=== PATIENT | female | born 1965 | race Caucasian/White ===

== ENCOUNTER → 2021-03-10 10:07 | Outpatient (CLI) | payer OTHER, SELFPAY ==
[2021-03-10 11:04] LABS: Add Manual Diff / Slide Review NO; Basophils Absolute Auto 100 /uL (0-100); Basophils Percent Auto 0.7 % (0-2); Eosinophils Absolute Auto 100 /uL (0-450); Eosinophils Percent Auto 1.2 % (2-4); Hematocrit 41.8 % (36-46); Lymphocytes Absolute Auto 2300 /uL (1100-4500); Lymphocytes Percent Auto 30.3 % (25-40); Mean Corpuscular HGB Conc 33.5 % (30-36); Mean Corpuscular Hemoglobin 30.1 PG (26-34); Monocytes Absolute Auto 400 /uL (0-900); Monocytes Percent Auto 5.2 % (3-14); Neutrophils Absolute Auto 4700 /uL (1500-7000); Neutrophils Percent Auto 62.6 % (50-75); Platelet Count 293 X10^3/uL (150-400); Red Blood Cell Count 4.64 X10^6/uL (4.0-5.2); Red Cell Distribution Width 13.6 % (11.6-14.8); White Blood Cell Count 7.6 X10^3/uL (4.5-11.0)
[2021-03-10 11:17] LABS: Glucose 90 mg/dL (70-100); Potassium 4.5 mmol/L (3.4-5.1); Sodium 140 mmol/L (137-145)
== END ==
PROVIDERS: PCP Family Medicine; Referring Provider Surgery; Visit Provider Surgery
DX: K80.20 Calculus of gallbladder without cholecystitis without obstruction (principal)
CPT/HCPCS: 36415; 80053; 83690; 85025; 99213

== ENCOUNTER → 2021-03-20 09:44 | Outpatient (CLI) | payer OTHER, SELFPAY ==
[2021-03-20 11:02] LABS: COVID19 -Nasal RAPID Negative (Negative)
== END ==
PROVIDERS: PCP Family Medicine; Visit Provider Surgery
DX: Z01.812 Encounter for preprocedural laboratory examination (principal); Z20.822 Contact with and (suspected) exposure to COVID-19
CPT/HCPCS: 87635; C9803

== ENCOUNTER 2021-03-23 09:07 | Day surgery (SDC) | payer OTHER, SELFPAY ==
[2021-03-19 10:52] VITALS: BMI 33.1
[2021-03-23] VITALS (18 sets, daily range): BP systolic 110–122; BP diastolic 65–83; PULSE 56–82; RESP 12–18; TEMP 36.1–36.5; O2SAT 95–100; BMI 32.6
--- NOTE | 2021-03-23 | PATH_ITS ---
[facility] Accession Number: [id number] . 01 Material submitted: . gallbladder - GALLBLADDER . 01 Clinical history: . LAP COLT W/IOC . 02 Diagnosis: Gallbladder, Cholecystectomy: Chronic cholecystitis, cholesterolosis, and cholelithiasis. MRV 03/25/2021 1032 Local . 02 Electronically signed: . Lindsey Nicholas MD, Pathologist NPI- [id number] . 01 Gross description: . The specimen is received in formalin labeled gallbladder and consists of a 7.1 x 3.5 x 2.5 cm gallbladder with a 0.3 cm in diameter cystic duct. The serosa is pink-purple and smooth. Opening reveals green viscous bile with two bartholomew-green bosselated choleliths measuring 1.0 x 1.0 x 0.8 cm and 1.5 x 1.0 x 0.8 cm. The mucosa is green and velvety and the wall thickness measures 0.1 cm. Clinical Associate sections are submitted, to include the en face cystic duct margin (blue) in cassette A1. ([id number]) /[facility] 03/24/2021 1547 Local . 02 Pathologist provided ICD-10: K80.20, K80.60 . 02 CPT . 374378 Performed at: 01 [facility] [address], [place], [place] [id number] MD Javier Fuentes MD Phone: [phone] Performed at: [address] [facility] [address] [place], [place] [id number] MD Mary Caldwell MD Phone: [phone]
--- NOTE | 2021-03-23 09:00 | DI.RAD.S_ITS ---
PROCEDURE: XR CHOLANGIOGRAM OPERATIVE INDICATIONS: OPERATIVE CHOLANGIOGRAM COMPARISON: None. FINDINGS: Biliary ducts: The surgeon injected contrast into the biliary ducts after cannulation of the cystic duct stump. Visualized intra- and extrahepatic bile ducts are normal in caliber, without strictures. No intraluminal filling defects to suggest retained ductal stones or sludge. No evidence for iatrogenic ductal injury. Duodenum: Contrast flows promptly through the sphincter of Oddi into the duodenum, which appears normal in caliber. IMPRESSION: Expected appearance of the intraoperative cholangiogram. Dictated by: Kam Paul M.D. on 03/23/2021 at 12:46 Approved by: Kam Paul M.D. on 03/23/2021 at 12:47
[2021-03-23] MEDS: ACETAMINOPHEN 325 MG TABLET 975 MG PO (09:36)
--- NOTE | 2021-03-23 09:55 | PM.PREOP ---
Pre-operative Note COVID-19 COVID-19 status: Negative Result date/Date tested (Pos, Neg/Pending): 03/20/21 Interval Note History & Physical reviewed/Exam performed by Physician: Yes Changes to H&P: No ASA Class (for procedural sedation): II
[2021-03-23] MEDS: LACTATED RINGERS 1,000 ML 42 ML IV ×2 (09:57→11:35)
[2021-03-23] MEDS: CEFAZOLIN 2 GM/20 ML SYRINGE IV (10:25)
--- NOTE | 2021-03-23 10:48 | SUR.OPER ---
Supine on padded OR bed, head on pillow, safety belt at thigh, left arm padded and tucked at side. Right arm secured on padded arm board <90 degrees abduction. Legs uncrossed. Padded footboard in place. Tape over blanket to secure lower legs.
[2021-03-23] MEDS: BUPIVACAINE 0.5% (PF) VIAL 30 ML INJ (10:56)
[2021-03-23] MEDS: LIDOCAINE 1% W/EPI 20 ML INJ (10:58)
[2021-03-23] MEDS: IOPAMIDOL 15 ML VIAL INJ (10:59)
[2021-03-23] MEDS: SODIUM CHLORIDE 0.9% FLUSH 15 ML IV (11:00)
--- NOTE | 2021-03-23 11:55 | PM.OP.1 ---
Operative Date/Time/Diagnoses Date of procedure: 03/23/21 Time of procedure: 11:55 Pre-op diagnosis: Symptomatic cholelithiasis Post-op diagnosis: same Procedure & Clinicians Procedure: Laparoscopic cholecystectomy with intraoperative cholangiogram Same procedure as scheduled: Yes Indications: Gallstones Surgeon: Lexa Casey Click Yes if Unassisted: Yes Anesthesia Type: General Operative Notes Estimated Blood Loss (mL): 15 Procedure in detail: The patient was given preoperative antibiotic. The patient was brought to the operating room, placed on the table in the supine position. General endotracheal anesthesia was induced. The abdomen was prepped and draped. A time-out was performed. We made a 1 cm infraumbilical incision. We dissected down to the base of the umbilical stalk using cautery. We grasped the umbilical stalk with a Rajesh clamp to elevate the abdominal wall. We scored the fascia in the midline with cautery 1 cm. We pierced the peritoneum with a Peon clamp. The Giovanna port was placed and the abdomen was insufflated to 15 mmHg. A 10 mm 30 degree laparoscopic was inserted. There was no evidence of any injury from the entry. Next, we placed 5 mm ports in the subxiphoid position and right upper quadrant at the midclavicular line and anterior axillary line. Patient was then positioned in reverse Trendelenburg and the table was tilted to the left. The gallbladder was grasped at the dome and retracted cephalad. We then dissected the cystic structures with a combination of hook cautery and blunt dissection. We obtained a critical view. Next, a cholangiogram was performed using the 6 Chinese ureteral catheter. There was good flow of contrast into the duodenum and to the hepatic bifurcation with no obvious filling defects. The cystic duct common duct junction was well visualized. We then placed clips on the cystic duct and artery and divided the cystic duct and artery sharply between the clips. The gallbladder was then dissected off the liver and placed in a specimen retrieval bag. We irrigated the right upper quadrant and all the aspirate returned clear. We then removed the 5 mm ports under direct vision we removed the Giovanna port. We then injected some local into the fascia and closed the fascia with 2 interrupted 0 Vicryl sutures. The skin incisions were closed with 4 Monocryl and Steri-Strips were applied. Band-Aids were applied over the Steri-Strips. EBL: 15 mL Specimen: Gallbladder Post-operative Condition: stable Disposition: PACU
[2021-03-23] MEDS: fentaNYL 100 MCG/2 ML INJ IV (12:24)
[2021-03-23] MEDS: OXYCODONE/ACETAMINOPHEN 5/325 TABLET 1 TAB PO ×2 (13:12→13:45)
== END 2021-03-23 14:36 | disposition home or self-care (01) ==
PROVIDERS: PCP Family Medicine; Referring Provider Surgery; Visit Provider Surgery
PROC: 0FT44ZZ Resection of Gallbladder, Percutaneous Endoscopic Approach (ICD-10-PCS; CPT 47562; principal; 2021-03-23 10:45)
DX: K80.10 Calculus of gallbladder with chronic cholecystitis without obstruction (principal); G47.33 Obstructive sleep apnea (adult) (pediatric); K21.9 Gastro-esophageal reflux disease without esophagitis; J45.909 Unspecified asthma, uncomplicated
CPT/HCPCS: 47563; 74300; J0330; J0690; J1100; J2405; J2704; J3010

== ENCOUNTER → 2021-05-05 10:35 | Outpatient (CLI) | payer OTHER, SELFPAY ==
[2021-05-05 15:39] LABS: C-Reactive Protein Quant < 0.5 mg/dL (<1.0)
[2021-05-05 17:55] LABS: Erythrocyte Sedimentation Rate 4 MM/HR (0-20)
[2021-05-06 21:07] LABS: Tissue Transglutaminase IgA <2 U/mL (0-3); Tissue Transglutaminase IgG <2 U/mL (0-5)
== END ==
PROVIDERS: PCP Family Medicine; Referring Provider Internal Medicine Gastroenterology; Visit Provider Internal Medicine Gastroenterology
DX: R10.9 Unspecified abdominal pain (principal); K62.5 Hemorrhage of anus and rectum; R19.8 Other specified symptoms and signs involving the digestive system and abdomen
CPT/HCPCS: 36415; 83516; 85651; 86140

== ENCOUNTER → 2021-06-26 13:50 | Outpatient (CLI) | payer OTHER, SELFPAY ==
[2021-06-26 16:15] LABS: COVID19 -Nasal RAPID Negative (Negative)
== END ==
PROVIDERS: PCP Family Medicine; Visit Provider Family Medicine Sleep Medicine
DX: Z20.822 Contact with and (suspected) exposure to COVID-19 (principal)
CPT/HCPCS: 87635; C9803

== ENCOUNTER 2021-06-29 12:42 | Day surgery (SDC) | payer OTHER, SELFPAY ==
[2021-06-29] VITALS (8 sets, daily range): BP systolic 109–131; BP diastolic 66–79; PULSE 62–69; RESP 13–20; TEMP 36.2–36.6; O2SAT 94–99; BMI 33.5
--- NOTE | 2021-06-29 | PATH_ITS ---
[facility] Accession Number: [id number] . 01 Material submitted: . PART A: duodenum - DUODENAL PART B: stomach - ANTRUM PART C: gastrointestinal site - GASTRIC POLYPS PART D: esophagus, E-G Junction - GE JUNCTION PART E: colon - RANDOM COLON BIOPSY . 02 Diagnosis: A. Duodenal, Biopsy: Small bowel mucosa with no diagnostic abnormality. Negative for active inflammation, dysplasia, and malignancy. . B. Antrum, Biopsy: Portions of gastric antral mucosa with mild chronic inflammation. Negative for Helicobacter organisms by immunohistochemistry. Negative for intestinal metaplasia. Negative for dysplasia or malignancy. . C. Gastric Polyps: Portions of gastric fundic polyp x4. No evidence of Helicobacter organisms on H/E stain. Negative for intestinal metaplasia. Negative for dysplasia and malignancy. . D. Gastroesophageal Junction, Biopsy: Portion of proximal gastric antral mucosa with chronic gastritis. Negative for Helicobacter organisms by immunohistochemistry. Negative for intestinal metaplasia. Negative for dysplasia or malignancy. . . E. Random Colon Biopsy: Colonic mucosa with no diagnostic abnormality. Negative for active, chronic, and microscopic colitis. Negative for dysplasia and malignancy. [facility] 07/02/2021 1319 Local . 02 Electronically signed: . Lindsey Nicholas MD, Pathologist NPI- [id number] . 01 Gross description: . Part A: DUODENAL: Received in formalin are 3 fragment(s) of bartholomew, soft tissue measuring 0.1 x 0.1 x 0.1 cm to 0.6 x 0.4 x 0.3 cm submitted entirely in 1 cassette(s) Part B: ANTRUM: Received in formalin is 1 fragment(s) of bartholomew, soft tissue measuring 0.3 x 0.3 x 0.2 cm submitted entirely in 1 cassette(s) Part C: GASTRIC POLYPS: Received in formalin are 4 fragment(s) of bartholomew, soft tissue measuring 0.1 x 0.1 x 0.1 cm to 0.3 x 0.2 x 0.2 cm submitted entirely in 1 cassette(s) Part D: GE JUNCTION: Received in formalin is 1 fragment(s) of bartholomew, soft tissue measuring 0.1 x 0.1 x 0.1 cm submitted entirely in 1 cassette(s) Part E: RANDOM COLON BIOPSY: Received in formalin are 3 fragment(s) of bartholomew, soft tissue measuring 0.1 x 0.1 x 0.1 cm to 0.2 x 0.2 x 0.2 cm submitted entirely in 1 cassette(s) /[facility] 06/30/2021 2258 Local . 02 Microscopic: . B. An immunohistochemical stain is performed to evaluate for Helicobacter organisms and is negative. The control stain showed appropriate reactivity. . D. An immunohistochemical stain is performed to evaluate for Helicobacter organisms and is negative. The control stain showed appropriate reactivity. . . . * This test was developed and its performance characteristics determined by [facility]. It has not been cleared or approved by the U.S. Food and Drug Administration. The FDA has determined that such clearance or approval is not necessary. This test is used for clinical purposes. It should not be regarded as investigational or for research. . 02 Pathologist provided ICD-10: R10.9, K62.5 . 02 CPT . 301818, 524454, 323635, 426663, 509816, A71842 Specimen Comment: A courtesy copy of this report has been sent to [phone], [phone] Specimen Comment: 2055 Performed at: 01 [facility] [address] [place] [address], [place], [place] [id number] MD Javier Fuentes MD Phone: [phone] Performed at: 02 [facility] [address] [place], [place] [id number] MD Mary Caldwell MD Phone: [phone]
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
--- NOTE | 2021-06-29 14:28 | PM.PREOP ---
Pre-operative Note COVID-19 COVID-19 status: Negative Result date/Date tested (Pos, Neg/Pending): 06/26/21 Criteria for continued procedure: Possibility delay results in more complex future surgery or treatment Interval Note History & Physical reviewed/Exam performed by Physician: Yes Changes to H&P: No ASA Class (for procedural sedation): II
--- NOTE | 2021-06-29 15:43 | P.OP.EGD&C_ITS ---
Operative Date/Time/Diagnoses Date of procedure: 06/29/21 Time of procedure: 15:44 Pre-op diagnosis: Abdominal pain altered bowel habits Post-op diagnosis: same Procedure & Clinicians Study performed: EGD with biopsies and colonoscopy with biopsies Same procedure as scheduled: Yes Indications: Abdominal pain and altered bowel habits Surgeon: Tima Andrews Procedure Notes SCOAP/Timeout: Done Procedure in detail: After the risks and benefits were explained, written and verbal informed consent was obtained. The patient was brought into the procedure room and placed into the left lateral decubitus position. Please see nurse trade show manager notes for sedation details. The scope was introduced into the mouth through the bite block and advanced under direct visualization to the 2nd portion of the duodenum. The scope was slowly withdrawn carefully examining the mucosa for any defects or lesions. Retroflexed views were accomplished in the stomach. The stomach was decompressed, the scope was then removed from the patient who tolerated the procedure well. The patient was then turned around a digital rectal examination accomplished mild internal grade 1-2 hemorrhoids were noted. The scope was introduced into the rectum and advanced under direct visualization to the level of the cecum as identified by the appendiceal orifice and ileocecal valve. The terminal ileum was briefly interrogated. The scope was then slowly withdrawn to carefully examine the mucosa for any defects or lesions. Multiple direct views were made through the dentate line for exclusion of pathology the colon was decompressed scope removed the patient tolerated the procedure well. Pediatric colonoscope Bowel prep adequate Scope withdrawal time: 10 minutes Sedation minutes: 45 Complications: none Impression: 1. Duodenum: This appeared visually normal from the bulb through the 2nd portion. Random D2 biopsies were acquired for exclusion of sprue or other pathology. 2. Stomach: No evidence of any outlet obstruction no ulcers no mass lesions. Mild gastropathy was appreciated in the antrum and biopsies were acquired for exclusion of Helicobacter or other pathology. Retroflexed views of the LES were unremarkable. There was some scattered diminutive benign-appearing polyps in the body and fundus. A few of these were sampled with cold forceps for histopathology. 3. Esophagus: The squamocolumnar junction correlated nicely with the top of the gastric folds. Patient had a slight irregularity at the level of the GEJ that suggested probable mild LA grade a erosive esophagitis. I took a biopsy from this location for histopathologic analysis. The remainder of the esophagus was rather unremarkable. 4. Terminal ileum: This appeared visually normal. 5. Colon: Patient had a fairly challenging navigation through the sigmoid. The colon was rather tortuous. There were scattered diverticulae in the left colon. No significant polyps mass lesions or inflammatory features identified throughout the colon. Random colon biopsies were taken for exclusion of microscopic disease. Endoscopic diagnosis 1. Mild gastropathy 2. Possible subtle esophagitis 3. Diverticulosis 4. Grade 2 hemorrhoids 5. Twisty colon Post-procedure Plan for aftercare: 1. Await histopathology. 2. Fiber containing bowel regimen for soft regular stools 3. Repeat colonoscopy 10 years time; sooner should symptoms warrant an earlier exam. Disposition: PACU
--- NOTE | 2021-06-29 16:42 | SUR.PHASEII ---
1435 late entry Ambulated to bathroom second time, passing copious amount of flatus. Stable on feet.
--- NOTE | 2021-06-29 16:43 | SUR.PHASEII ---
1630 800ml NS infused
== END 2021-06-29 16:41 | disposition home or self-care (01) ==
PROVIDERS: PCP Family Medicine; Referring Provider Internal Medicine Gastroenterology; Visit Provider Internal Medicine Gastroenterology
PROC: 0DJ08ZZ Inspection of Upper Intestinal Tract, Via Natural or Artificial Opening Endoscopic (ICD-10-PCS; CPT 43235; principal; 2021-06-29 14:00)
PROC: 0DJD8ZZ Inspection of Lower Intestinal Tract, Via Natural or Artificial Opening Endoscopic (ICD-10-PCS; CPT 45378; 2021-06-29 14:00)
DX: K29.50 Unspecified chronic gastritis without bleeding (principal); R19.4 Change in bowel habit; K64.1 Second degree hemorrhoids; K57.30 Diverticulosis of large intestine without perforation or abscess without bleeding; K31.9 Disease of stomach and duodenum, unspecified
CPT/HCPCS: 45380; 43239; J2704

== ENCOUNTER → 2022-10-08 09:58 | Outpatient (CLI) | payer OTHER, SELFPAY ==
[2022-10-08 11:12] LABS: Add Manual Diff / Slide Review NO; Basophils Absolute Auto 0 /uL (0-100); Basophils Percent Auto 0.3 % (0-2); Eosinophils Absolute Auto 0 /uL (0-450); Eosinophils Percent Auto 0.2 % (2-4); Hematocrit 41.5 % (36-46); Lymphocytes Absolute Auto 1800 /uL (1100-4500); Lymphocytes Percent Auto 11.4 % (25-40); Mean Corpuscular HGB Conc 33.8 % (30-36); Mean Corpuscular Hemoglobin 29.9 PG (26-34); Mean Corpuscular Volume 88.6 fL (80-100); Monocytes Absolute Auto 900 /uL (0-900); Monocytes Percent Auto 5.6 % (3-14); Neutrophils Absolute Auto 12700 /uL (1500-7000); Neutrophils Percent Auto 82.5 % (50-75); Platelet Count 376 X10^3/uL (150-400); Red Blood Cell Count 4.68 X10^6/uL (4.0-5.2); White Blood Cell Count 15.4 X10^3/uL (4.5-11.0)
[2022-10-08 11:31] LABS: BUN Creatinine Ratio 27.3 (6-22); Blood Urea Nitrogen 21 mg/dL (7-17); Calcium 9.9 mg/dL (8.4-10.2); Carbon Dioxide 25 mmol/L (22-32); Chloride 98 mmol/L (98-107); Estimated Glomerular Filt Rate > 60 mL/min (>60); Glucose 101 mg/dL (70-100); Sodium 138 mmol/L (137-145)
[2022-10-08 11:32] LABS: HEMOLYSIS 127 (0-50); Potassium 4.7 mmol/L (3.4-5.1)
[2022-10-08 12:34] LABS: Appearance Urine UA CLEAR; Bilirubin Urine UA NEGATIVE (NEGATIVE); Color Urine UA YELLOW; Glucose Urine UA NEGATIVE (Negative); Ketones Urine UA NEGATIVE (NEGATIVE); Leukocyte Esterase Urine UA NEGATIVE (NEGATIVE); Nitrite Urine UA NEGATIVE (Negative); Occult Blood Urine UA NEGATIVE (Negative); Protein Urine UA TRACE (Negative); Specific Gravity Urine UA <=1.005 (1.000-1.035); Urobilinogen Urine UA 0.2 E.U./dL (0.2); pH Urine UA 6.5 (4.5-8.0)
[2022-10-08 12:41] LABS: Bacteria Urine Occasional (0-1); Culture Indicated Urine Cult Not Indicated; RBC Urine 0-1/HPF (0-5/HPF); Squamous Epithelial Cell Urine 0-1 /HPF (0-5/HPF); WBC Urine 0-1/HPF (0-5/HPF)
[2022-10-09 08:39] LABS: x Labcorp Estim. Avg Glu (eAG) 97 mg/dL (.)
== END ==
PROVIDERS: PCP Family Medicine; Referring Provider Orthopaedic Surgery; Visit Provider Orthopaedic Surgery
DX: Z01.818 Encounter for other preprocedural examination (principal); Z01.812 Encounter for preprocedural laboratory examination; R73.9 Hyperglycemia, unspecified; N39.0 Urinary tract infection, site not specified
CPT/HCPCS: 36415; 80048; 81001; 83036; 85025; 93005; 93010

== ENCOUNTER 2023-02-17 06:32 | Day surgery (SDC) | payer OTHER, SELFPAY ==
[2023-02-10 10:13] VITALS: BMI 32.1
[2023-02-17] VITALS (9 sets, daily range): BP systolic 116–125; BP diastolic 69–79; PULSE 61–91; RESP 11–18; TEMP 35.8–36.4; O2SAT 96–100; BMI 30.2
--- NOTE | 2023-02-17 06:00 | DI.RAD.S_ITS ---
PROCEDURE: XR KNEE LT 1TO2V INDICATIONS: unipolar LEFT KNEE TECHNIQUE: 2 view(s) of the knee acquired. COMPARISON: None. FINDINGS: Bones: Patient is status post knee joint medial mazin-arthroplasty. Hardware components are in expected positions. Visualized bony structures are intact. Soft tissues: Overlying postoperative changes are noted. IMPRESSION: Expected post-operative appearance of a knee mazin-arthroplasty. Dictated by: Annika Nelson MD, PhD on 02/17/2023 at 13:37 Approved by: Annika Nelson MD, PhD on 02/17/2023 at 13:38
[2023-02-17] MEDS: CELECOXIB 200 MG CAPSULE 400 MG PO (06:48)
[2023-02-17] MEDS: ACETAMINOPHEN 325 MG TABLET 975 MG PO (06:48)
[2023-02-17] MEDS: VANCOMYCIN 1,000 MG/200 ML PIGGYBACK 200 MG IV (06:56)
[2023-02-17] MEDS: LACTATED RINGERS 1,000 ML 42 ML IV ×2 (07:01→08:48)
--- NOTE | 2023-02-17 07:38 | PM.PREOP ---
Pre-operative Note Interval Note History & Physical reviewed/Exam performed by Physician: Yes Changes to H&P: No
--- NOTE | 2023-02-17 07:39 | P.OP_ITS ---
Operative Date/Time/Diagnoses Date of procedure: 02/17/23 Time of procedure: 08:00 Pre-op diagnosis: left knee OA Post-op diagnosis: same Procedure & Clinicians Procedure: Left knee medial unicompartment arthroplasty Same procedure as scheduled: Yes Indications: The patient has had progressively worsening left knee pain with radiographic maria elena nges consistent with arthritis. Non-operative management has failed and the patient has requested medial unicompartment knee replacement. The risks, benefits and alternatives to surgery were discussed with the patient prior to proceeding. Risks discussed included, but were not limited to, failure to relieve pain, stiffness, infection, nerve damage, deep venous thrombosis, pulmonary embolism, stroke, coma, heart attack, permanent paralysis and , as well as the potential need for eventual revision of the prosthetic. Surgeon: Klarissa Suazo Interlocking Machine Operator: Bjorn Lucas Anesthesia Type: General and Peripheral nerve block Operative Notes Findings: Severe left knee medial osteoarthritis, good bone, good stability Closure Type: primary Specimen(s): none sent Prosthetic devices, grafts, tissues, transplants, or devices: Suazo and nephew medial Uni size 5 femur, +8 poly, size 4 tibia Estimated Blood Loss (mL): 100 Blood products transfused: none Tourniquet time (min): 45 Procedure in detail: The patient was seen in the pre-operative area, where the left knee was identified as the operative site and this was marked with my initials. The patient received pre-operative antibiotics, and was taken to the operating room and placed on the operative table in the supine position. After satisfactory anesthesia, a maritime officer out was performed. The left leg was encircled with a tourniquet about the proximal thigh, and the leg was prepared from the toes to the tourniquet with ChloroPrep in the usual fashion and draped through sterile drapes. The leg was elevated and exsanguinated with Eschmark bandage and the tourniquet inflated to [250] mmHg pressure. The knee was approached through an approximately 10 cm incision medial parapatella incision and carried into the knee through a medial parapatellar arthrotomy. The osteophytes and medial meniscus were removed. Next, a small amount of the anterior tibial boss was carefully resected with a saw. The guide was placed along the medial joint line. It was meticulously adjusted to make sure there was appropriate slope that it was at the joint line and then was pinned to the tibia and the femur. The medial femoral condylar cut was made in extension. The tibial cut was made in flexion. The bone was meticulously irrigated with normal saline. Small amount of additional meniscus was resected posterior capsule was checked and injected with Marcaine. The extension gap was carefully checked with an 8 mm gap food service agent was noted that it fit well. A small number of additional osteophytes were resected. The tibia was a size [4]. It was noted that it fit without overhang. The femur was sized and it was noted to be a [5]. The appropriate cutting guide was pinned into place and carefully positioned on the femoral condyle. Drill holes were placed. The tibia was pinned into place and drill holes were made. Trial reduction with the appropriate poly showed full range of motion and good stability at 0, 45. and 90? with normal tracking of the components without edge loading. The bone was meticulously irrigated and dried. Additional Marcaine was injected. The posterior capsule was injected with 0.25% Marcaine mixed with 20 ml Exparel for post-operative pain control. The remainder of this mixture was injected into the capsule and subcutaneous tissues during cement curing. Range of motion was [0-130], with good stability throughout the range. The trials were then remove. The cement was as applied and the final prosthetics placed. Excess cement was removed during and after cement curing. A brief medial compartment Betadine soak was performed. After confirming there was no extruded cement posteriorly, the final tibial insert was placed. The knee was copiously irrigated and the tourniquet deflated. Hemostasis was obtained. The capsule was closed with interrupted vicryl. The subcutaneous tissue was closed with barbed sutures. The skin with a running 3-0 V-Lock suture and surgical glue. An Aquacel Ag dressing was applied and the patient was taken to recovery having tolerated the procedure well. Complications: none Post-operative Condition: stable Disposition: Acute Care Plan for aftercare: The patient will be maintained on a standard medial Uni knee replacement protocol with weight bearing as tolerated. The patient will receive aspirin and sequential compression devices for DVT prophylaxis. The patient will be discharged home when safe for the home environment.
[2023-02-17] MEDS: TRANEXAMIC ACID 1,000 MG VIAL 1000 MG INJ (08:00)
[2023-02-17] MEDS: CEFAZOLIN 2 GM/100 ML PREMIX 100 ML IV (08:10)
--- NOTE | 2023-02-17 08:14 | SUR.OPER ---
Block start time 0748 . Monitoring initiated and maintained throughout procedure. Time out performed at 0748. Oxygen and medications given per anesthesiologist instructions. Patient remained stable throughout procedure, no adverse reactions noted. Block end time 0753.
--- NOTE | 2023-02-17 08:16 | SUR.OPER ---
Addendum entered by Milagros Urias R.N. 02/17/23 08:29: Operative leg secured in Ruben positioner. Original Note: Supine on padded OR bed. Pillow under head, arms secured on padded armboards <90 degree abduction. Safety belt across torso. Non-operative leg secured with tape over blanket over lower leg. Operative leg secured in DeMayo positioner. Foam padded brace at thigh of operative leg.
[2023-02-17] MEDS: BUPIVACAINE 0.25% (PF) 60 ML, EPINEPHrine 0.3 MG INJ (08:20)
[2023-02-17] MEDS: BUPIVACAINE LIPOSOME 266 MG/20 ML VIAL INJ (08:21)
--- NOTE | 2023-02-17 09:07 | P.PCN_ITS ---
Peripheral Nerve Block Note Pre-Procedure Reason for block: Attending surgeon request/order for post-op pain management Pre-procedure checklist: Patient examined and chart reviewed, Risks, benefits, alternatives of block discussed, questions answered, Verification of anti- coagulation status, Site confirmed, Timeout performed and Standard ASA monitors applied Consent obtained from: Patient Procedure Date of procedure: 02/17/23 Start Time: 07:48 End Time: 07:53 Performed by: Niyah Martinez Sedation - enter dose in comment field: IV Midazolam (mg) (2) and IV Fentanyl (mcg) (100) Location: Intra-Op Position: Supine Laterality: Left (single shot adductor canal nerve block) Sterile Technique: Sterile barrier maintained, Sterile gloves, Mask and Chloraprep Equipment Single injection - Needle brand, gauge, length: PAJUNK 21G x 100mm Medications Medications - enter concentration (%) & mL in comment field: Ropivacaine (0.5%, 20mls) Incremental aspiration prior to injection: Yes Ultrasound Reason for Ultrasound: U/S guidance used for needle placement and U/S used to visualize spread of anesthetic Image printed/saved/archived: Yes Limited exam reveals no abnormal findings: Yes Vital signs VS: - 02/17/23 06:50 Temperature 97.2 F L Pulse Rate 65 Respiratory Rate 17 Blood Pressure 125/74 Pulse Oximetry 96 Oxygen Delivery Method Room Air Oxygen Delivery Method Room Air Events Nerve Block Events: Procedure uneventful
[2023-02-17] MEDS: METOCLOPRAMIDE 10 MG/2 ML INJ IV (09:50)
[2023-02-17] MEDS: hydrOXYzine pamoate 25 MG CAPSULE 50 MG PO (09:59)
[2023-02-17] MEDS: OXYCODONE IR 5 MG TABLET PO (09:59)
== END 2023-02-17 12:47 | disposition home or self-care (01) ==
PROVIDERS: PCP Family Medicine; Referring Provider Orthopaedic Surgery; Visit Provider Orthopaedic Surgery
PROC: (CPT 27446; principal; 2023-02-17 07:45)
DX: M17.12 Unilateral primary osteoarthritis, left knee (principal); G89.18 Other acute postprocedural pain
CPT/HCPCS: 27446; 64450; 73560; C1776; C1713; C9290; J0171; J0690; J1100; J2250; J2405; J2704; J2765; J3010